=== PATIENT | female | born 1995 | race Caucasian/White ===

== ENCOUNTER 2025-05-03 00:55 | Inpatient (IN) | payer BC, SELFPAY ==
[2025-05-03] VITALS (23 sets, daily range): BP systolic 116–174; BP diastolic 67–98; PULSE 67–88; RESP 16–18; TEMP 36.4–37.2; O2SAT 93–99
[2025-05-03] MEDS: LACTATED RINGERS 1000 ML 1,000 ML IV (00:54)
[2025-05-03] MEDS: OXYTOCIN 30 unit/500 ML in NS 30 UNIT/500 ML BAG 300 UNIT IVPB (01:08)
--- NOTE | 2025-05-03 01:30 | P.OBHP_ITS ---
OB - H&P: HPI Labor/Induction History of Present Illness Date Seen: 05/03/25 Chief Complaint: The patient is a 30 year old 6 para 4015 at 40+2 weeks gestation by LMP and c/w 1st trimester US, who presents with painful regular contractions. Chief complaint: Maternity Narrative: Ruthie Goldberg is a 30 year old at 40+2 weeks gestation by LMP and confirmed with 1st trimester US here with painful, regular contractions starting on 11/30 at 2300. complicated by maternal obesity and growth restriction for which she has been following with MFM. However by 37 weeks, measurements were within normal range. Patient has history of a with 3rd which was a twin gestation and complicated by preeclampsia. She has been on 81 mg ASA throughout this . History of Present Dating criteria: based on LMP care: good care Ultrasounds: normal 1st trimester US and normal mid trimester US Abnormal ultrasound findings: Fetwl growth restriction, follow up at 37 weeks had resolved. Medical complications: gastrointestinal (c diff infection) Labs Blood type: A (+) positive Rubella: immune RPR/VDLR: nonreactive GBS status: positive HBsAG: negative Review of Systems Status of ROS: Reports: 6 or more systems reviewed and unremarkable except as noted in History and below Meds Home Medications and Allergies Home Medications ?Medication ?Instructions ?Recorded ?Confirmed ?Type docosahexaenoic acid 200 mg mg PO 03/18/25 03/18/25 Hi story capsule ( DHA) Allergies Allergy/AdvReac Type Severity Reaction Status Date / Time No Known Drug Allergies Allergy Verified 03/18/25 14:09 OB - H&P: Exam Physical Exam: Vital signs: Temp Pulse BP Pulse Ox 97.6 F 81 152/74 H 93 05/03/25 00:38 05/03/25 01:28 05/03/25 01:28 05/03/25 00:16 Constitutional: Comments: Uncomfortable with contractions Routine HEENT Exam: Head: Present atraumatic Eye: Present EOMI and normal appearance ENT: Present mucous membranes moist Routine Neck Exam: Neck: Present full ROM Routine Respiratory Exam: Respiratory: Present CTA bilaterally Routine Cardiovascular Exam: Cardiovascular: RRR Detailed Labor and Delivery Exam: Patient Gravid: yes Dilation (cm): 7 Effacement (%): 90 Cervix position: anterior Consistency: soft Contraction frequency (min): 2 Contraction intensity: Strong/Firm Fetus (Single): Station: -1 Amniotic Membrane Status: intact Routine Back/Spine/Pelvis Exam: Back/Spine: full ROM Routine Skin Exam: Present intact and warm Routine Neurological Exam: Present alert and oriented X3 Routine Psychiatric Exam: Present normal affect and normal thought process OB - Problem Based A/P Additional Plan (1) History of delivery: Status: Acute (2) growth restriction: Status: Acute (3) Obesity: Status: Acute (4) Vaginal delivery: Status: Acute Plan Patient is in active labor, requests epidural, but labor is moving quickly. Anticipate . Delivery/Labor/Induction Plan Plan: expectant management
[2025-05-03] MEDS: IBUPROFEN 600 MG TABLET PO ×3 (01:33→15:38)
--- NOTE | 2025-05-03 01:39 | W.PM.VAGDEL1 ---
Procedure Delivery date: 05/03/25 Procedure Done: Global Events: Previous Intrapartal Events: Precipitous Labor <3 Hrs Delivery monitor: external FHT Route of delivery: Laceration description: None Estimated blood loss (mL): 50 Anesthesia type: None Disposition: floor Narrative: The patient is a 30 year-old admitted on 05/03/2025 at 40 Weeks, 2 Days gestation for active labor.? Cervical exam on admission was 5 cm/70 % effaced/-3 station with membranes intact in vertex presentation.? Contractions were every 2 minutes and cervix was quickly dilating. heart rate demonstrated baseline 130 bpm with moderate variability, - accelerations, - decelerations; a category 2 tracing.? SROM occurred at 0100 with clear fluid. ? Labor Analgesia:? none, used nitrous with ? Pitocin:? post-delivery ? Labor onset:? 05/02/25 2300 ? Complete:? 0100 ? Pushing:? 0100 ? heart tones during second stage were category2. ? At 0107 a viable female infant delivered in vertex OA presentation over intact perineum via spontaneous vaginal delivery.? was placed on maternal abdomen.? Cord was clamped and cut after a 30-60 second delay.? Nose and mouth were bulb suctioned.? Infant weight pending.? 8 at 1 minute and 9 at 5 minutes.? Shoulder dystocia: no.? Nuchal cord: no. ? Placenta delivered spontaneously and complete at 0110 with a 3 vessel cord. ? Mother and infant were stable after delivery. ? Lacerations:? none. ? Blood loss: 50 mL. Blood loss measurement type: EBL ? Sponge and needles counts are correct. Infant Gender: Female presentation: vertex Placental Delivery Description: Spontaneous Cord Description: 3 Vessels
[2025-05-03] MEDS: ACETAMINOPHEN 500 MG TABLET 1000 MG PO ×3 (02:07→22:36)
[2025-05-03 02:39] LABS: Alanine Aminotransferase* 14 U/L (4-35); Aspartate Amino Transferase* 27 U/L (12-35); Creatinine* 0.7 mg/dL (0.5-1.5); Estimated Glomerular Filt Rate 119 ml/min
[2025-05-03 03:23] LABS: Hematocrit* 31.7 % (33.0-51.0); Hemoglobin* 9.7 gm/dL (12.0-16.0); Mean Corpuscular HGB Conc 31 gm/dL (32-36); Mean Corpuscular Hemoglobin 22 pg (26-34); Mean Corpuscular Volume 73 fL (80-100); Red Blood Count* 4.33 m/uL (4.00-5.20); White Blood Count* 12.84 K/uL (4.50-11.00)
[2025-05-03 03:26] LABS: Slide Review Reflex No
[2025-05-03] MEDS: SIMETHICONE 80 MG TAB.CHEW PO (15:37)
[2025-05-03 17:54] LABS: Hemoglobin* 7.5 gm/dL (12.0-16.0)
--- NOTE | 2025-05-03 18:16 | PM.OBPNVD1 ---
OB - PN:Subj Subjective Time Seen by Provider: 18:16 Date Seen: 05/03/25 Narrative: Called by RN to evaluate the patient for bilateral low back pain radiating to the right hip. Patient has been rating a 8-9/10 despite receiving scheduled tylenol, ibuprofen and oxycodone 5 mg since delivery. Reportedly did pass a single large clot shortly after delivery, but since then, bleeding has slowed. Patient has been moving about her room independently, showered, walking in it the halls. Patient reports pain started several hours ago. She notices most when standing, moving about, and lifting the right leg. It improves with pain medications, but recurs shortly after she receives a dose. No significant pelvic pain. Denies vaginal or perineal pain. She has been urinating. Passing gas, no stool yet. Denies dizziness or lightheadedness. Notes she was not experiencing these symptoms prior to delivery. OB - PN: Obj Exam Physical Exam: Vital signs: Temp Pulse Resp BP Pulse Ox O2 Del Method 97.6 F 75 16 128/88 98 Room Air 05/03/25 16:30 05/03/25 16:30 05/03/25 16:30 05/03/25 16:30 05/03/25 16:30 05/03/25 16:30 Narrative: General appearance: Well-appearing adult female. Alert, oriented and appropriate. Sitting up in hospital bed. HEENT: EOMI, no conjunctival injection or discharge. MMM. Neck: Supple. CV: RRR, no rubs, murmurs or extra heart sounds. Pulm: CTAB, no wheezes, rales or rhonchi. Abdomen: Soft, non-tender. Fundus palpated at the umbilicus. No guarding or rebound. Hypoactive bowel sounds MSK: Mild tenderness to palpation of the bilatereal paraspinous musculature at ~ the T10 level. Ext: Warm and well-perfused. No LE edema. Skin: No rashes appreciated over exposed skin. Neuro: Strength is 5/5 in the hip flexors bilaterally. Patient can flex the hips without significant discomfort. Psych: Normal affect. OB - PN: Obj Data Labs Labs: Laboratory Results - last 24 hr 05/03/25 05/03/25 05/03/25 00:55 03:18 17:35 WBC 12.84 H RBC 4.33 Hgb 9.7 L 7.5 L* Hct 31.7 L MCV 73 L MCH 22 L MCHC 31 L Plt Count 270 Creatinine 0.7 Estimated GFR 119 AST 27 ALT 14 OB - PN: A/P Delivery Assessment and Plan (1) History of delivery: Status: Acute (2) growth restriction: Status: Acute (3) Obesity: Status: Acute (4) Vaginal delivery: Status: Acute (5) Low back pain: Problem details: Suspect musculoskeletal etiology. Patient has been independently active in the room, ambulating in the halls. Status: Acute Assessment and Plan: - Continue current pain plan with scheduled tylenol and ibuprofen, oxycodone available for breakthrough pain - Heat therapy as needed - Encourage movement about the room, ambulation (6) Anemia, : Problem details: Hgb 9.7 > 7.5. EBL with delivery was 50 cc. Vitals are WNL and patient is asymptomatic. Abdominal exam is reassuring, fundus is firm and mildly tender, otherwise soft w/o peritoneal signs. Recommend blood transfusion, she would like to consider. Status: Acute Assessment and Plan: - Continue to monitor overnight - Recheck hgb in AM - Revisit blood transfusion vs inpatient IV iron vs oral iron at discharge
[2025-05-04] VITALS (9 sets, daily range): BP systolic 96–148; BP diastolic 66–106; PULSE 67–102; RESP 16–20; TEMP 36.4–36.7; O2SAT 96–99
[2025-05-04] MEDS: IBUPROFEN 600 MG TABLET PO ×4 (01:02→20:37)
[2025-05-04 07:11] LABS: Hemoglobin* 9.4 gm/dL (12.0-16.0)
--- NOTE | 2025-05-04 07:47 | PM.OBPNVD1 ---
OB - PN:Subj Subjective Time Seen by Provider: 07:48 Date Seen: 05/04/25 Interval history: patient reports she continues to have right groin pain that radiates around into the low back. She also reports she had a 'terrible headache overnight that has since improved. Bleeding appropriate. Voiding and passing gas. Bottle feeding. status: bottle feeding status: exclusively bottle feeding OB - PN: Obj Exam Physical Exam: Vital signs: Temp Pulse Resp BP Pulse Ox O2 Del Method 98 F 67 16 128/89 97 Room Air 05/04/25 04:55 05/04/25 04:55 05/04/25 04:55 05/04/25 04:55 05/04/25 04:55 05/04/25 04:55 Constitutional: Constitutional: no acute distress Routine HEENT Exam: Head: Present atraumatic and normocephalic ENT: Present mucous membranes moist Routine Respiratory Exam: Respiratory: Present CTA bilaterally Routine Cardiovascular Exam: Cardiovascular: Present RRR, S1 and S2; Absent murmur Routine Abdominal Exam: Abdominal: Present normal bowel sounds and soft; Absent tenderness Fundus: Present firm (at 1 under umbilicus) Routine Extremities Exam: Extremities: Present pedal edema (1+ bilaterally) Routine Back/Spine/Pelvis Exam: Back/Spine: Present full ROM Comments: Tender in low back diffusely in bony prominences and musculature. Right groin has tenderness as well. Routine Skin Exam: Skin: Present dry and intact Routine Neurological Exam: Neurological: Present alert and oriented X3 Detailed Psychiatric Exam: Mood and affect: Present flat OB - PN: Obj Data Labs Labs: Laboratory Results - last 24 hr 05/03/25 05/04/25 17:35 07:05 Hgb 7.5 L* 9.4 L OB - PN: A/P Delivery Assessment and Plan (1) History of delivery: Status: Acute (2) growth restriction: Status: Acute (3) Obesity: Status: Acute (4) Low back pain: Problem details: Suspect musculoskeletal etiology. Patient has been independently active in the room, ambulating in the halls. Status: Acute Assessment and Plan: - will order PT today (5) Anemia, : Problem details: Hgb 9.7 > 7.5>9.4 this morning. EBL with delivery was 50 cc. Vitals are WNL and patient is asymptomatic. Abdominal exam is reassuring, fundus is firm and mildly tender, otherwise soft w/o peritoneal signs. Declined blood transfusion last night. Hemoglobin improved today. Status: Acute (6) Gestational hypertension: Problem details: Elevated BP following delivery. Improved with nifedipine. BP elevated again last evening, so 2nd (BID) dose added. BP have been within normal limits since. Had headache overnight, but improved now. If returns, would repeat labs Status: Acute Assessment and Plan: - continue BID nifedipine 30 mg - monitor for signs/symptoms of preelcampsia. (7) (vaginal after ): Status: Acute Plan - if pain control, no headaches, and not requiring oxycodone for pain, will discharge to home. Otherwise, may stay for ongoing monitoring. Plan day: 1 Plan: routine care
[2025-05-04] MEDS: DOCUSATE SODIUM 100 MG CAPSULE PO (08:17)
[2025-05-04 10:17] LABS: Hemoglobin* 9.1 gm/dL (12.0-16.0)
[2025-05-04] MEDS: ACETAMINOPHEN 500 MG TABLET 1000 MG PO ×2 (10:31→16:36)
[2025-05-04 10:32] LABS: Alanine Aminotransferase* 23 U/L (4-35); Aspartate Amino Transferase* 46 U/L (12-35); Creatinine* 0.7 mg/dL (0.5-1.5); Estimated Glomerular Filt Rate 119 ml/min
--- NOTE | 2025-05-04 10:57 | PC.NURSE ---
Patient's labs reviewed with Dr. Balderrama. Continue to monitor headache to and see if it is improved in a few hours.
--- NOTE | 2025-05-04 11:37 | PC.NURSE ---
Home BP cuff given to patient. Reviewed the handouts and showed patient how to check BP. All questions answered.
[2025-05-04 18:07] LABS: Hemoglobin* 8.4 gm/dL (12.0-16.0)
[2025-05-04 18:21] LABS: Alanine Aminotransferase* 23 U/L (4-35); Aspartate Amino Transferase* 42 U/L (12-35); Creatinine* 0.7 mg/dL (0.5-1.5); Estimated Glomerular Filt Rate 119 ml/min
[2025-05-04] MEDS: LABETALOL HCL 100 MG TABLET PO (22:35)
[2025-05-05 00:32] VITALS: BP 128/78; PULSE 80; RESP 20; TEMP 36.3; O2SAT 98
[2025-05-05] MEDS: IBUPROFEN 600 MG TABLET PO (04:41)
[2025-05-05] MEDS: ACETAMINOPHEN 500 MG TABLET 1000 MG PO (04:42)
[2025-05-05 04:48] VITALS: BP 121/82; PULSE 77; RESP 20; O2SAT 98
--- NOTE | 2025-05-05 08:17 | PM.OBDSVD1 ---
DS: Providers Provider Date Seen: 05/05/25 Date of admission: 05/03/25 00:55 Primary care physician: Not a Local Provider Admitting Clinician: Cris Uribe MD Consults: 05/04/25 07:46 Consult to Physical Therapy [CONS] Routine Comment: Reason(s) for PT Consult:: Pain Any Restrictions?:: No Restrictions Comment: Patient is having right hip and low back pain following precipitous vaginal delivery 05/03. Attending Physician on discharge: Cris Uribe MD Date of Discharge: 05/05/25 DS: Diagnosis Discharge Diagnosis (1) (vaginal after ): Status: Acute (2) Gestational hypertension: Status: Acute Problem details: Elevated BP following delivery. Improved with nifedipine. BP elevated again last evening, so 2nd (BID) dose added. BP have been within normal limits since. Had headache overnight, but improved now. If returns, would repeat labs (3) Anemia, : Status: Acute Problem details: Hgb 9.7 > 7.5>9.4 this morning. EBL with delivery was 50 cc. Vitals are WNL and patient is asymptomatic. Abdominal exam is reassuring, fundus is firm and mildly tender, otherwise soft w/o peritoneal signs. Declined blood transfusion last night. Hemoglobin improved today. (4) Vaginal delivery: Status: Acute (5) Low back pain: Status: Acute Problem details: Suspect musculoskeletal etiology. Patient has been independently active in the room, ambulating in the halls. Exam Const: Vital Signs, click to edit/add: Vital Signs - 24 hr 05/04/25 08:30 05/04/25 10:01 05/04/25 11:35 Temperature 98.1 F 97.6 F Pulse Rate [Pulse Oximeter] 96 102 H 89 Respiratory Rate 16 16 16 Blood Pressure [Le ft Arm] 127/87 110/68 115/80 Pulse Oximetry 97 96 98 Oxygen Delivery Me thod Room Air Room Air Room Air 05/04/25 14:48 05/04/25 20:31 05/04/25 22:34 Temperature 97.8 F 98 F Pulse Rate [Pulse Oximeter] 71 81 75 Respiratory Rate 16 17 Blood Pressure [Le ft Arm] 134/87 96/66 148/106 H Pulse Oximetry 99 97 Oxygen Delivery Me thod Room Air Room Air 05/04/25 22:49 05/05/25 00:32 05/05/25 04:48 Temperature 97.4 F L Pulse Rate [Pulse Oximeter] 89 80 77 Respiratory Rate 20 20 Blood Pressure [Le ft Arm] 135/90 H 128/78 121/82 Pulse Oximetry 98 98 Oxygen Delivery Me thod Room Air Common normals: no apparent distress General appearance: cooperative and comfortable HENMT: Common normals: normocephalic Head and scalp: normocephalic Resp: Common normals: normal respiratory effort Cardio: Common normals: regular rate and regular rhythm Rate: regular rate Rhythm: regular rhythm : Uterus: U/U Extremity: Common normals: normal to inspection and no pedal edema OB - DS: Summary Hospital Course Hospital Course: The patient is a 30 year old G 6 P 4016 at 40.2 weeks gestation that was admitted to the Center on 05/03/25 for active labor. She had an uncomplicated, precipitous vaginal delivery. She delivered a viable female infant. She is bottle feeding. the patient has done well. Peripartum Data delivery method: Vaginal Laceration description: None Episiotomy description: None complications: other (gestational HTN, low back and right hip pain) Infant Gender: Female Status at Discharge Functional status at discharge: independent ambulation Overall status at discharge: patient is progressing back to baseline Time Spent with Patient Time attestation: Total time spent providing and/or coordinating discharge services: Time spent: Less than 30 minutes Discharge Plan Discharge Disposition: Home, Self-Care Date of Admission: 05/03/25 00:55 Attending Provider on Discharge: Cris Uribe Primary Care Provider: Provider,Not a Local Condition: Improved Anticipated Discharge Date/Time: 05/05/25 08:20 Discharge Medications: New ibuprofen 600 mg Tablet 600 mg PO Q6H PRNQty: 30 0RF labetalol 100 mg Tablet 100 mg PO BID Qty: 60 0RF Continued DHA 200 mg capsule PO Discharge Orders: Discharge Order (Routine); Ordered 05/05/25 Ordered By: Cris Uribe Patient Education: OB Vaginal/Bottle Feeding Activity Level: No Restrictions Activity Detail: nothing per vagina x6 weeks Discharge Diet: Regular Follow Up Appointments: Provider,Not a Local [Primary Care Provider, Family Practice] Cris Uribe MD [Staff Physician, Family Practice] Referral Note: in 6 weeks Forms: Patient Belongings, MyHealth Info Instructions
[2025-05-05] MEDS: DOCUSATE SODIUM 100 MG CAPSULE PO (08:36)
[2025-05-05] MEDS: LABETALOL HCL 100 MG TABLET PO (08:36)
[2025-05-05 08:37] VITALS: BP 141/88; PULSE 85; RESP 18; O2SAT 97
== END 2025-05-05 11:10 | disposition home or self-care (01) | DRG 560 ==
LOC: OB OUT 01:15 → OB 01:15
PROVIDERS: Family Medicine; Admitting Provider Family Medicine; Visit Provider Family Medicine
DX: O34.211 Maternal care for low transverse scar from previous cesarean delivery (principal); O62.3 Precipitate labor; O16.5 Unspecified maternal hypertension, complicating the puerperium; R51.9 Headache, unspecified; O90.81 Anemia of the puerperium; D64.9 Anemia, unspecified; M54.59 Other low back pain; O99.214 Obesity complicating childbirth; E66.9 Obesity, unspecified; Z37.0 Single live birth; Z3A.40 40 weeks gestation of pregnancy
CPT/HCPCS: 36415; 82565; 84450; 84460; 85018; 85027; 85049; 86592; 88307; 97162; 97530; G0463; A9270; J3010; J7120